=== PATIENT | male | born 1960 | race Caucasian/White ===

== ENCOUNTER 2018-09-03 10:48 | Emergency (ER) | payer SELFPAY ==
[~2018-09-03] VITALS: Ht 172.7 cm; Wt 97.5 kg
[~2018-09-03 10:48] MED LIST: CLIN300C3 PO; NAPR-243 PO; TRM50T PO
--- OUTSIDE RECORDS SUMMARY | 2018-09-03 10:51 | XMS REPORT | Continuity of Care Document ---
Author Author [facility] Organization [facility] Address Unknown Phone Unavailable Allergies There is no data. Medications There is no data. Problems There is no data. Procedures There is no data. Results There is no data. Encounters ACCT No. Visit Date/Time Discharge Status Pt. Type Provider Facility Loc./Unit Complaint [id number] 06/16/2014 08:43:00 09/01/2014 00:01:00 DIS Outpatient [id number] 06/01/2014 21:40:00 06/02/2014 13:45:00 DIS Inpatient [id number] 05/31/2014 18:04:00 05/31/2014 20:09:00 DIS Emergency
[2018-09-03] MEDS ORDERED: LIDOCAINE 1% INJ 20 ML 20 ML VIAL ONE (11:07)
[2018-09-03] MEDS ORDERED: HYDROcodone/APAP 5 MG/325 MG (LORTAB) TAB PO ONE (11:15)
--- NOTE | 2018-09-03 11:38 | Diagnostic Imaging Report ---
INDICATION: Injury to left hand AP, oblique, and lateral views of the left hand are obtained. There is a comminuted fracture of the fifth distal phalanx with displacement of fracture fragments. There is no radiopaque foreign body. There is also a nondisplaced fracture of the distal tuft of the fourth distal phalanx. There is underlying degenerative change of the interphalangeal joints. IMPRESSION: Comminuted displaced fractures of the fifth distal phalanx are present, without radiopaque foreign body. There is a nondisplaced fracture of the fourth distal phalanx. There is underlying degenerative change of the interphalangeal joints. Dictated by: Dictated on workstation # [id number]
[2018-09-03] MEDS ORDERED: TETANUS,DIPTH,PERTUSS P/F (BOOSTRIX) 0.5 ML VIAL IM ONE (11:45)
--- NOTE | 2018-09-03 11:47 | ED Upper Extremity ---
General Chief Complaint: Upper Extremity Stated Complaint: FINGER INJ Nursing Triage Note: PT AMB TO ROOM #7 W/O DIFFICULTY WITH C/O LT HAND INJURY THAT OCCURRED APPROX 1000 ON THIS DAY. PT REPORTS HE WAS AT WORK WHEN HE GOT HIS LT FINGER CAUGHT IN A "V-BELT IN THE AC." PT REPORTS LAST TETANUS WAS APPROX 7 YEARS AGO. BLEEDING CONTROLLED WITH PRESSURE. LT PINKY FINGER NOTED TO BE DISPLACED WITH OPEN LACERATION. PT REPORTS PAIN TO LT SECOND AND THIRD FINGER WELL. A&OX4. Nursing Sepsis Screen: No Definite Risk Source: patient Exam Limitations: no limitations History of Present Illness Date Seen by Provider: Sep 03, 2018 Time Seen by Provider: 11:00 Initial Comments To ER with left pinky finger injury. This occurred at home while he was trying to change the ear condition on his vehicle. His hand got caught in the V Belt. He has a laceration/partial amputation of the distal phalanx left fifth finger. Tetanus is not up-to-date. Onset: just prior to arrival Pain/Injury Location: left 5th finger Method of Injury: direct blow Modifying Factors: Worse With Movement Allergies and Home Medications Allergies Coded Allergies: No Known Drug Allergies (Unverified , 05/31/14) Patient Home Medication List Home Medication List Reviewed: Yes Review of Systems Constitutional: see HPI EENTM: see HPI Respiratory: no symptoms reported Cardiovascular: no symptoms reported Genitourinary: no symptoms reported Musculoskeletal: no symptoms reported Skin: see HPI Psychiatric/Neurological: No Symptoms Reported Past Uvxvlht-Wcfesf-Jjbcez Hx Patient Social History Recent Foreign Travel: No Contact w/Someone Who Travel: No Recent Infectious Disease Expo: No Immunizations Up To Date Tetanus Booster (TDap): Less than 5yrs Past Medical History Tuberculosis Reproductive Disorders: No Fractures Hearing Impairment: Denies Family Medical History Alcoholism G8 SISTER Cancer of colon 19 MOTHER Family history: Cardiovascular disease 19 MOTHER History of - respiratory disease 19 MOTHER (copd) Physical Exam Vital Signs Vital Signs - First Documented 09/03/18 10:53 Temp 97.9 Pulse 102 Resp 18 B/P (MAP) 150/99 (116) Pulse Ox 96 O2 Delivery Room Air Capillary Refill : Less Than 3 Seconds Height, Weight, BMI Height: 5'8.00" Weight: 215lbs. 0.0oz. 97.632554xw; BMI Method:Stated General Appearance: WD/WN, no apparent distress HEENT: PERRL/EOMI, normal ENT inspection Shoulder: normal inspection, non-tender Elbow/Forearm: normal inspection, non-tender, Left Wrist: Yes normal inspection, Yes non-tender Hand: Left, laceration (there is a laceration from the ulnar side of the distal phalanx just proximal to the proximal nail fold across the dorsal aspect of the finger to the radial side. He does not have any sensation of the distal tip of the finger. However, he is a nonsmoker and there is brisk capillary refill of the distal tissues did) Neurologic/Tendon: sensory deficit Neurologic/Psychiatric: alert, normal mood/affect Skin: normal color, warm/dry Procedures/Interventions Wound Location: Upper Extremities Wound's Depth, Shape: nail-avulsed, bone, sub Q Wound Explored: clean Irrigated w/ Saline (ccs): 250 Anesthesia: 1% Lidocaine Volume Anesthetic (ccs): 5 Suture: Ethlion Suture Size: 5-0 Number of Sutures: 7 Layer Closure?: 1 Number Deep Layer Sutures: 0 Progress A digital block was done of the fifth finger using 4 mL of 1% lidocaine without epinephrine. This achieved wonderful anesthesia of the finger tip. He was then irrigated copiously, no foreign bodies were identified. The partially amputated distal tip of the finger was held back in a more anatomic appearance and sutured with 7 sutures size 5-0 Prolene. Due to concern for development of subungual hematoma we used a cautery pen to do a nail trephination. The fingernail was left in place and uses a splint for the fractured phalanx. This was then covered with Xeroform and tube gauze. Progress/Results/Core Measures Results/Orders My Orders Orders - NIRANJAN BENTON APRN Hand, Left, 3 Views (09/03/18 11:04) Lidocaine 1% Inj 20 Ml (Xylocaine 1% Inj (09/03/18 11:07) Hydrocodone/Apap 5/325 Tablet (Lortab 5 (09/03/18 11:15) Dipht,Pertuss(Acell),Tet Adult (Boostrix (09/03/18 11:45) Hand, Left, 2 Views (09/03/18 11:41) Medications Given in ED Current Medications Medications Dose Ordered Sig/Sylvia Route Start Time Stop Time Status Last Admin Dose Admin Acetaminophen/ Hydrocodone Bitart 1 tab ONCE ONCE PO 09/03/18 11:15 09/03/18 11:16 DC 09/03/18 11:33 1 TAB Lidocaine HCl 20 ml STK-MED ONCE .ROUTE 09/03/18 11:07 09/03/18 11:12 DC 09/03/18 11:15 20 ML Vital Signs/I&O 09/03/18 10:53 Temp 97.9 Pulse 102 Resp 18 B/P (MAP) 150/99 (116) Pulse Ox 96 O2 Delivery Room Air Blood Pressure Mean: 116 Departure Impression Primary Impression: Partial traumatic transphalangeal amputation of finger Disposition: HOME, SELF-CARE Condition: Stable Departure-Patient Inst. Decision time for Depature: 11:46 Referrals: JAIDA PEREZ MD,LOCAL PHYSICIAN (PCP) Primary Care Physician PHAN ELLISON MD, ROBERT F DO ZAFUTA, MICHAEL P MD Patient Instructions: Finger Fracture (DC) Add. Discharge Instructions: 1. Return here on Thursday for dressing change and wound check. Return here in 10 days on the to have the stitches removed. Take antibiotics and pain medication as directed. All discharge instructions reviewed with patient and/or family. Voiced understanding. Scripts Hydrocodone/Acetaminophen ([place] 5-325 Tablet) 1 Each Tablet 1 EACH PO Q6H PRN for PAIN-MODERATE MDD 10, #30 TAB Prov: NIRANJAN BETNON APRN 09/03/18 Cephalexin (Keflex) 500 Mg Capsule 500 MG PO TID, #21 CAP Prov: NIRANJAN BENTON APRN 09/03/18 Work/School Note: Work Release Form Date Seen in the Emergency Department: Sep 03, 2018 Return to Work: Sep 05, 2018 Other Restrictions Listed Below: Left finger in a splint until cleared. NIRANJAN BENTON APRN Sep 03, 2018 11:47
[2018-09-03] MEDS ORDERED: HYDR-4226 PO (11:48)
[2018-09-03] MEDS ORDERED: CEPH-507 PO (11:48)
[2018-09-03 12:03] VITALS: BP 166/113
--- NOTE | 2018-09-03 12:37 | Diagnostic Imaging Report ---
PATIENT HISTORY: Fracture of the left hand. TECHNIQUE: 2 views of the left hand COMPARISON: 09/03/2018 FINDINGS: There is a nondisplaced oblique fracture through the distal phalanx of the left fourth finger extending into the tuft. Alignment appears stable. Also redemonstrated is a segmental fracture of the left fifth finger distal phalanx, with anterior angulation of the middle fragment. Alignment appears slightly improved. There is marked overlying soft tissue laceration. No radiopaque foreign body is seen. IMPRESSION: 1. Segmental fracture of the left fifth distal phalanx, with minimally improved alignment. No radiopaque foreign body seen. 2. Stable nondisplaced fracture of the left fourth distal phalanx. Dictated by: Dictated on workstation # [id number]
== END 2018-09-03 12:14 | disposition home or self-care (01) ==
LOC: EDUNIT# 10:48 → ER 10:49
DX: S68.627A Partial traumatic transphalangeal amputation of left little finger, initial encounter (principal); Z82.49 Family history of ischemic heart disease and other diseases of the circulatory system; Z80.0 Family history of malignant neoplasm of digestive organs; Z23 Encounter for immunization; W23.1XXA Caught, crushed, jammed, or pinched between stationary objects, initial encounter
CPT/HCPCS: 29130; 64450; 73120; 73130; 90715

== ENCOUNTER 2018-09-05 15:55 | Emergency (ER) | payer SELFPAY ==
[~2018-09-05] VITALS: Ht 172.7 cm; Wt 97.5 kg
[~2018-09-05 15:55] MED LIST changes: +CEPH-507 PO; +HYDR-4226 PO
--- OUTSIDE RECORDS SUMMARY | 2018-09-05 16:01 | XMS REPORT | Continuity of Care Document ---
Author Author [facility] Organization [facility] Address Unknown Phone Unavailable Allergies Active Description Code Type Severity Reaction Onset Reported/Identified Relationship to Patient Clinical Status Yes No Known Drug Allergies [id number] Drug Allergy Unknown N/A 05/31/2014 Medications There is no data. Problems Date Dx Coded Attending Type Code Diagnosis Diagnosed By 05/31/2014 AIDA ARIZA DO Ot 682.4 CELLULITIS OF HAND 06/02/2014 DILIA PETERSEN MD Ot 041.12 METHICILLIN RESISTANT STAPHYLOCOCCUS AUR 06/02/2014 DILIA PETERSEN MD Ot 682.3 CELLULITIS OF ARM 06/02/2014 DILIA PETERSEN MD Ot 682.4 CELLULITIS OF HAND 09/01/2014 DILIA PETERSEN MD Ot V58.62 ENCOUNT FOR LONG-TERM(CURRENT) USE OF AN 09/01/2014 DILIA PETERSEN MD Ot V58.83 ENCOUNTER FOR THERAPEUTIC DRUG MONITORIN 09/03/2018 Ot V58.62 ENCOUNT FOR LONG-TERM(CURRENT) USE OF AN 09/03/2018 Ot V58.83 ENCOUNTER FOR THERAPEUTIC DRUG MONITORIN Procedures There is no data. Results There is no data. Encounters ACCT No. Visit Date/Time Discharge Status Pt. Type Provider Facility Loc./Unit Complaint [id number] 09/03/2018 10:49:00 09/03/2018 12:14:00 DIS Emergency NIRANJAN BENTON APRN [facility] ER FINGER INJ [id number] 06/16/2014 08:43:00 09/01/2014 00:01:00 DIS Outpatient DILIA PETERSEN MD [facility] SURG RCR EXCESSIVE CELLULITIS [id number] 06/01/2014 21:40:00 06/02/2014 13:45:00 DIS Inpatient DILIA PETERSEN MD [facility] SURGICAL EXCESSIVE CELLULITIS [id number] 05/31/2014 18:04:00 05/31/2014 20:09:00 DIS Emergency AIDA ARIZA DO [facility] ER INSECT BITE/STING [id number] 09/05/2018 15:57:00 ACT Emergency MARY BRADFORD, KAYA Carnes [facility] ER DRESSING CHANGED ON LT HAND [id number] 09/02/2014 00:00:00 Document Registration
--- NOTE | 2018-09-05 17:13 | ED Suture Removal/Wound Check ---
Suture/Wound Re-check Suture Removal/Wound Recheck : Suture Removal/Wound Recheck: Dry/sterile dressing-appl Progress Wound check left fifth finger distal tip. Wound appears to be healing well without red streaks or drainage. No complications. General Appearance: WD/WN, no apparent distress Neuro/Tendon: normal motor functions Skin Exam: warm/dry Comments Left fifth finger tip laceration repair evaluated. Sutures in place. No foul- smelling drainage. No red streaks to the finger hand. Mild swelling to the tip that appears to be healing well at this point. Physical Exam Vital Signs Vital Signs - First Documented 09/05/18 16:27 Pulse 67 Resp 18 B/P (MAP) 151/94 Pulse Ox 96 O2 Delivery Room Air Capillary Refill : General Appearance: WD/WN, no apparent distress Neurologic/Psychiatric: alert, oriented x 3 Skin: normal color, warm/dry, other (wound healing) Departure Impression Primary Impression: Encounter for post-traumatic wound check Disposition: HOME, SELF-CARE Condition: Improved Departure-Patient Inst. Decision time for Depature: 17:11 Referrals: NO,LOCAL PHYSICIAN (PCP/Family) Primary Care Physician Patient Instructions: Wound Care (DC) Add. Discharge Instructions: All discharge instructions reviewed with patient and/or family. Voiced understanding. Keep dressing in place for the next 2 days and then you may remove. You may gently wash the wound and then redress with antibiotic ointment and bandage. You should change that once or twice daily for the next several days after that and then you may cover with just dry dressing as needed. Return for any worsening, red streaks, foul-smelling drainage, fever or other concerns as needed. KAYA HERNANDEZ MD Sep 05, 2018 17:13
[2018-09-05 17:21] VITALS: BP 151/94
== END 2018-09-05 17:21 | disposition home or self-care (01) ==
LOC: EDUNIT# 15:55 → ER 15:57
DX: S61.217D Laceration without foreign body of left little finger without damage to nail, subsequent encounter (principal); X58.XXXD Exposure to other specified factors, subsequent encounter
CPT/HCPCS: 99282

== ENCOUNTER 2018-09-18 15:23 | Emergency (ER) | payer SELFPAY ==
[~2018-09-18] VITALS: Ht 172.7 cm; Wt 90.7 kg
--- OUTSIDE RECORDS SUMMARY | 2018-09-18 15:44 | XMS REPORT | Continuity of Care Document ---
Author Author [facility] Organization [facility] Address Unknown Phone Unavailable Allergies Active Description Code Type Severity Reaction Onset Reported/Identified Relationship to Patient Clinical Status Yes No Known Drug Allergies [id number] Drug Allergy Unknown N/A 05/31/2014 Medications There [...] Ot V58.83 ENCOUNTER FOR THERAPEUTIC DRUG MONITORIN 09/06/2018 NIRANJAN BENTON APRN Ot S68.627A PARTIAL TRAUMATIC TRNSPHAL AMP OF L ANGELA 09/06/2018 NIRANJAN BENTON APRN Ot S69.92XA UNSP INJURY OF LEFT WRIST, HAND AND FING 09/06/2018 NIRANJAN BNETON APRN Ot W23.1XXA CAUGHT, CRUSH, JAMMED, OR PINCHED BETW S 09/06/2018 NIRANJAN BENTON APRN Ot Z23 ENCOUNTER FOR IMMUNIZATION 09/06/2018 NIRANJAN BENTON APRN Ot Z80.0 FAMILY HISTORY OF MALIGNANT NEOPLASM OF 09/06/2018 NIRANJAN BENTON APRN Ot Z82.49 FAMILY HX OF ISCHEM HEART DIS AND OTH DI 09/07/2018 MARY BRADFORD, KAYA Carnes Ot S61.217D LAC W/O FB OF L LITTLE FINGER W/O DAMAGE 09/07/2018 MARY BRADFORD, KAYA Carnes Ot X58.XXXD EXPOSURE TO OTHER SPECIFIED FACTORS, SUB 09/12/2018 NIRANJAN BENTON APRN Ot S68.627A PARTIAL TRAUMATIC TRNSPHAL AMP OF L ANGELA 09/12/2018 NIRANJAN BENTON APRN Ot S69.92XA UNSP INJURY OF LEFT WRIST, HAND AND FING 09/12/2018 NIRANJAN BENTON APRN Ot W23.1XXA CAUGHT, CRUSH, JAMMED, OR PINCHED BETW S 09/12/2018 NIRANJAN BENTON APRN Ot Z23 ENCOUNTER FOR IMMUNIZATION 09/12/2018 NIRANJAN BENTON APRN Ot Z80.0 FAMILY HISTORY OF MALIGNANT NEOPLASM OF 09/12/2018 NIRANJAN BENTON APRN Ot Z82.49 FAMILY HX OF ISCHEM HEART DIS AND OTH DI Procedures There is no data. Results There is no data. Encounters ACCT No. Visit Date/Time Discharge Status Pt. Type Provider Facility Loc./Unit Complaint [id number] 09/05/2018 15:57:00 09/05/2018 17:21:00 DIS Outpatient KAYA HERNANDEZ MD [facility] ER DRESSING CHANGED ON LT HAND [id number] 09/03/2018 10:49:00 09/03/2018 12:14:00 DIS Outpatient NIRANJAN BENTON APRN [facility] ER FINGER INJ [id number] 06/16/2014 08:43:00 09/01/2014 00:01:00 DIS Outpatient DILIA PETERSEN MD [facility] SURG RCR EXCESSIVE CELLULITIS [id number] 06/01/2014 21:40:00 06/02/2014 13:45:00 DIS Inpatient DILIA PETERSEN MD [facility] SURGICAL EXCESSIVE CELLULITIS [id number] 05/31/2014 18:04:00 05/31/2014 20:09:00 DIS Emergency AIDA ARIZA DO [facility] ER INSECT BITE/STING [id number] 09/02/2014 00:00:00 Document Registration
[2018-09-18 16:00] VITALS: BP 188/98
== END 2018-09-18 16:00 | disposition home or self-care (01) ==
LOC: EDUNIT# 15:23 → ER 15:27
DX: S61.210D Laceration without foreign body of right index finger without damage to nail, subsequent encounter (principal); X58.XXXD Exposure to other specified factors, subsequent encounter